=== PATIENT | male | born 1945 | race Caucasian/White ===

== ENCOUNTER 2016-10-29 13:50 | Emergency (ER) | payer MEDICARE, OTHER ==
[~2016-10-29] VITALS: Ht 188 cm; Wt 119.0 kg
[~2016-10-29 13:50] MED LIST: AC325T PO; ALBU8.5H2 IH; AMD200T PO; AMIO200T2 PO; ATOR10TA PO; ATOR20TA PO; BENZ200C43 PO; DABI150C PO; DIGO250T PO; DILT240C45 PO; DILT360C29 PO; DLT180CCR PO; DOXY100C2 PO; FAMO20TA13 PO; FURO20TA4 PO; GLIM4TAB PO; HCT25T PO; HUM100VI13 SQ; INSASP1U SQ; INSU100V32 SQ; INSU100V5 SC; LEVEMIR (P10 UNIT/0. SC; LEVEMIR (P10 UNIT/0. SQ; LOSA50TA2 PO; LSNP20T PO; METF1000 PO; METF500T4 PO; METO-274 PO; OMEG1CAP58 PO; OMEP20CA12 PO; PANT40TA3 PO; PIOG15TA3 PO; PRD20T PO; SIMV40TA2 PO; SPRN25T PO; [UNRECOGNIZED DRUG - OTHER]; novolin
[2016-10-29 14:44] LABS: MEAN CORPUSCULAR HEMOGLOBIN 30.2 PG (26.0-34.0); MEAN CORPUSCULAR HGB CONC 33.9 g/dL (31.0-37.0); MEAN CORPUSCULAR VOLUME 89 FL (80-100); MEAN PLATELET VOLUME 9.7 FL (6.0-9.5); PLATELET COUNT 247 10^3uL (150-450); WHITE BLOOD COUNT 17.86 10^3uL (4.0-11.0)
--- NOTE | 2016-10-29 14:47 | NUR ---
EKG given to MD. Lindsey completed @8674.
--- NOTE | 2016-10-29 14:47 | NUR ---
Per MD, O2 sat OK at >88% RA, per patient usu at 88%, d/n have home O2.
[2016-10-29 14:56] LABS: ALBUMIN 4.1 g/dL (3.4-5.0); ANION GAP 16.5 MEQ/L (3-15); CALCULATED IONIZED CALCIUM 3.7 mg/dL (3.8-4.6); TOTAL PROTEIN 7.6 g/dL (6.4-8.5)
--- NOTE | 2016-10-29 14:56 | NUR ---
Informed of urine specimen order, instructed to notify staff when need to void, call domingo w/in reach, verbalized understanding, NAD.
--- NOTE | 2016-10-29 14:57 | Diagnostic Imaging Report ---
INDICATION: Cough shortness of air. COMPARISON: 09/08/2016. FINDINGS: Examination is mildly limited by portable technique and patient body habitus. Stable right basilar linear opacities, which are chronic. Posterior lower lobes are poorly evaluated by portable radiography. Stable enlargement of cardiac silhouette. Pulmonary vasculature is grossly normal. IMPRESSION: Stable chest radiograph compared to 09/08/2016. No evidence of acute cardiopulmonary process by portable radiography. Dictated by: Dictated on workstation # [id number]
[2016-10-29] MEDS ORDERED: NS IV 500 ML 500 ML IV SCH (15:10)
[2016-10-29 15:12] LABS: BAND NEUTROPHILS % 3 % (0-6); EOSINOPHILS % 0 % (0-4); RBC MORPH NORMAL (NORMAL); SEGMENTED NEUTROPHILS % 84 % (51-67)
[2016-10-29 15:13] LABS: LYMPHOCYTES # 1.4 #; MONOCYTES # 0.9 #; MONOCYTES % 5 % (3-11); TOTAL CELLS COUNTED 100
--- NOTE | 2016-10-29 15:45 | NUR ---
Assisted patient to standing position to void in bedside urinal, NAD.
[2016-10-29 15:50] LABS: BILIRUBIN,URINE Negative (Negative); CLARITY,URINE Clear; COLOR,URINE Yellow; GLUCOSE, URINE (UA) Negative (Negative); LEUKOCYTE ESTERASE ,URINE Negative (Negative); PH,URINE 5.5 (5.0 - 8.0); UROBILINOGEN,URINE 0.2 mg/dL (0.2-1.0)
[2016-10-29 16:02] LABS: RBC,URINE 0-2 /HPF; URINE CENTRIFUGED VOLUME 12 mL
[2016-10-29] MEDS ORDERED: BENZ-22 PO (16:10)
[2016-10-29] MEDS ORDERED: BENZONATATE 100 MG (TESSALON) CAPSULE PO ONE (16:10)
[2016-10-29 16:27] VITALS: BP 134/61
== END 2016-10-29 16:30 | disposition home or self-care (01) ==
LOC: EDUNIT# 13:50 → ED 13:52
DX: R53.1 Weakness (principal); R19.7 Diarrhea, unspecified; I10 Essential (primary) hypertension; E78.5 Hyperlipidemia, unspecified; E11.9 Type 2 diabetes mellitus without complications; I48.91 Unspecified atrial fibrillation
CPT/HCPCS: 36415; 71010; 80053; 80162; 81003; 81015; 82550; 82553; 84484; 85025; 85610; 85730; 93005; 96360; 99285; A9270; J7040; 93010; 99284

== ENCOUNTER → 2016-11-03 | Outpatient (REF) | payer MEDICARE, OTHER | LOC: LAB 09:47 | PROVIDERS: ATTEND Family Medicine | DX: E11.9 Type 2 diabetes mellitus without complications (principal) | CPT/HCPCS: 83036 ==

== ENCOUNTER → 2016-12-12 | Outpatient (CLI) | payer MEDICARE, OTHER ==
[2016-12-12 11:28] LABS: ANION GAP 16.3 MEQ/L (3-15)
== END ==
LOC: LAB 11:08
PROVIDERS: ATTEND Family Medicine
DX: I50.42 Chronic combined systolic (congestive) and diastolic (congestive) heart failure (principal)
CPT/HCPCS: 36415; 80048

== ENCOUNTER → 2016-12-18 | Outpatient (REF) | payer MEDICARE, OTHER ==
[2016-12-18 16:40] LABS: ANION GAP 18.3 MEQ/L (3-15)
== END ==
LOC: LAB 14:55
PROVIDERS: ATTEND Family Medicine
DX: N18.3 Chronic kidney disease, stage 3 (moderate) (principal)
CPT/HCPCS: 80048

== ENCOUNTER → 2016-12-26 | Outpatient (CLI) | payer MEDICARE, OTHER | LOC: RAD 11:46 | PROVIDERS: ATTEND Family Medicine | DX: M25.562 Pain in left knee (principal) | CPT/HCPCS: 73562 ==

== ENCOUNTER 2017-01-07 13:01 | Emergency (ER) | payer MEDICARE, OTHER ==
[~2017-01-07] VITALS: Ht 177.8 cm; Wt 121.0 kg
[~2017-01-07 13:01] MED LIST changes: +BENZ-22 PO
[2017-01-07 14:46] LABS: BASOPHILS % (AUTO) 0 % (0-2); EOSINOPHILS # (AUTO) 0.2 10^3uL; EOSINOPHILS % (AUTO) 2 % (0-4); LYMPHOCYTES # (AUTO) 1.6 X10^3; MEAN CORPUSCULAR HEMOGLOBIN 29.7 PG (26.0-34.0); MEAN CORPUSCULAR HGB CONC 33.6 g/dL (31.0-37.0); MEAN CORPUSCULAR VOLUME 89 FL (80-100); MEAN PLATELET VOLUME 10.5 FL (6.0-9.5); MONOCYTES # (AUTO) 1.4 X10^3; MONOCYTES % (AUTO) 9 % (3-11); NEUTROPHILS # (AUTO) 11.7 X10^3; NEUTROPHILS % (AUTO) 78 % (51-67); PLATELET COUNT 287 10^3uL (150-450); WHITE BLOOD COUNT 14.95 10^3uL (4.0-11.0)
[2017-01-07 15:02] LABS: ALBUMIN 4.2 g/dL (3.4-5.0); ANION GAP 15.8 MEQ/L (3-15); CALCULATED IONIZED CALCIUM 3.7 mg/dL (3.8-4.6); TOTAL PROTEIN 8.2 g/dL (6.4-8.5)
--- NOTE | 2017-01-07 15:16 | Diagnostic Imaging Report ---
INDICATION: Dyspnea and chest pain. 1455 hrs. COMPARISON: Comparison is made to study of 10/29/2016. FINDINGS: There is bilateral air trapping. Prominent interstitial markings are seen throughout the lungs. There is no consolidation. No pneumothorax is identified. IMPRESSION: Probable COPD. Interstitial prominence has increased particularly in the left midlung and may represent edema or pneumonitis superimposed on background interstitial scarring. Dictated by: Dictated on workstation # [id number]
[2017-01-07 16:28] VITALS: BP 114/69
[2017-01-07] MEDS ORDERED: CEPH-331 PO (16:30)
== END 2017-01-07 16:58 | disposition home or self-care (01) ==
LOC: ED 13:03
DX: J06.9 Acute upper respiratory infection, unspecified (principal); E11.65 Type 2 diabetes mellitus with hyperglycemia; Z79.4 Long term (current) use of insulin; R42 Dizziness and giddiness
CPT/HCPCS: 36415; 71010; 80053; 84484; 85025; 93005; 99284; J7030; 99283

== ENCOUNTER 2017-01-09 09:45 | Outpatient (RCR) | payer MEDICARE, OTHER ==
--- NOTE | 2017-01-06 11:40 | PT/OT/ST INITIAL EVALUATION ---
Department of Health and Human Services Form Approved [facility] Care Financing Administration OMB No. [id number] PLAN OF CARE/ASSESSMENT FOR OUTPATIENT REHABILITATION (Complete for Initial Claims Only) 1. PATIENT'S NAME Deejay Ureña 2. ACC # [id number] 3. [facility] [id number] 4. PROVIDER NO. [id number] 5. TYPE: PT 6. PRIOR HOSPITALIZATION NA 7. PRIMARY DX Arthritis ICD-10 code M19.90 8. SECONDARY DX Left knee pain M25.562 9. ONSET DATE 2 to 3 weeks ago 10. REFERRAL DATE 12/25/2016 11. SOC. DATE 01/01/2017 12. TIME OF EVAL 13:[address] Wm Sexton 13. CHARGES/UNITS Evaluation 15256 1 unit of vasopneumatic device 70717 1 unit of therapeutic exercise 29836 14. G CODES Current C9162-HU Goal [id number] 15. PRIOR LEVEL OF FUNCTION; PERTINENT HISTORY (Prior therapy results, reason for referral.) S: Prior to therapy, the patient did consent to today's evaluation and treatment. The patient is a 71-year-old male referred by Dr. Wm Sexton, with a 2 to 3 week nontraumatic onset of left knee pain. The patient reports his pain is greatest medially along the knee joint of the left knee. He does experience buckling of the left knee at times, also. The patient has seen a chiropractor for this issue and has received a cortisone shot, which has not provided him relief at this time. The patient has been referred to an orthopedist; however, the appointment has not been scheduled at this time. Prior level of function: The patient reports loving to garden, as he has a large garden at his home. He ambulates without the use of an assistive device and is independent in his ADLs. The patient does have 3 to 4 entry steps with another 2 steps to transition from one level of his house to another. Current level of function: The patient reports being unable to sleep secondary to the left medial knee pain. He also has impaired gait sequencing and increased unsteadiness at times secondary to the left knee buckling. Pain level: Maximum pain is 7 to 8/10. Current pain level is 6/10 and described as a painful sensation all the time at the medial knee joint. Aggravating factors: The pain is aggravated by left knee movement. Relieving factors: There are no specific relieving factors that the patient has found at this time. Diagnostic testing: The patient has undergone x-rays, which he reports the physician found no specific issues. 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 Current medications: The patient did not provide a list of medications and was unable to remember the name of the pain medication he takes at this time. Patient's Goal: The patient's goal is to have a fix for his left knee pain. 16. INITIAL ASSESSMENT/SAFETY PRECAUTIONS/MEDICAL COMPLICATIONS (Level of function at start of care. Be specific, use objective measures, list problems.) O: APPEARANCE AND OBSERVATION: Assessment of the patient's gait reveals decreased weight bearing on the left lower extremity, foot-flat positioning, as well as increased lateral trunk sway. The patient does ambulate with a widened base of support and does wear poor footwear with minimal support. He is ambulating today without the use of an assistive device. The physical therapist notes vastus medialis atrophy on the left knee. The patient does have swelling around the left knee joint in comparison to the right. PALPATION: The patient has pain with slight tenderness to palpation of the medial left knee joint. SPECIAL TESTS: The patient scores a 70% disability on the Lower Extremity Functional Index. No further special testing was completed this date. RANGE OF MOTION/FLEXIBILITY: Right knee flexion 130 degrees, left 110 degrees and painful. Bilateral knee extension is both 0 degrees. STRENGTH: Bilateral hip flexion 5/5. Right knee flexion 4/5, left 3/5 and painful. Right knee extension 5/5, left 4/5 and painful. Ankle dorsiflexion 5/5 bilaterally. TODAY'S TREATMENT: Today's treatment consisted of educating the patient on the findings of the evaluation and recommended treatment plan. The physical therapist initiated left knee active range of motion and quadriceps strengthening exercises with the patient noting some left knee pain throughout these activities. The vasopneumatic device was utilized to decreased pain and swelling. However, the patient had poor tolerance of the vasopneumatic device and it was ended early. 17. INITIAL POC: (Specify procedures, modalities, short and snf goals) A: The patient presents to physical therapy with an acute onset of left knee pain that has impaired range of motion, as well as strength. The patient also has significant impairment with gait at this time. PROGNOSIS: The patient does have a fair outcome in physical therapy with regular therapy attendance and compliance with his home exercise program. OUTCOME ASSESSMENT: The patient scored a 70% disability on the Lower Extremity Functional Index. INFORMED CONSENT: The diagnosis, prognosis, treatment plan, risks and expected outcomes were discussed with the patient and he is agreeable to today's established plan of care. SHORT TERM GOALS X2 WEEKS: 1. The patient will report compliance with his home exercise program. 2. The patient will demonstrate the ability to ambulate with heel-toe gait pattern with pain no greater than a 4/10 with this technique. 3. The patient will improve left knee active range of motion to be a minimum of 120 degrees with minimal pain reported. LONG-TERM GOALS X4 WEEKS: 1. The patient will improve left knee flexion strength to be a minimum of 4/5, extension strength to be a minimum of 4+/5. 2. The patient will demonstrate the ability to perform single leg standing up to 15 seconds to demonstrate improve stability through the left lower extremity. 3. The patient will have a minimum of a 15% decrease on the Lower Extremity Functional Index. 4. The patient will report maximum pain level as a 5/10 in the left knee. P: Plan to treat this patient 3 times a week times 4 weeks in order to address left week pain, impaired lower extremity strength and range of motion. Treatment will include modalities as needed including a vasopneumatic device. Manual therapy will be utilized to decrease pain and improve muscle flexibility, therapeutic exercise emphasis on regaining full pain free range of motion with progressive strengthening as the patient tolerates, gait and balance training will be utilized as well. The patient was provided a home exercise program and this will be progressed as needed. Thank you for the referral of this patient. 18. FREQUENCY 3 times a week 19. DURATION 4 weeks 20. FUNCTIONAL LEVEL (End of claim period) 21. PHYSICIAN SIGNATURE ? ON FILE OR ENTER HERE: 22. DATE: I certify the need for these services furnished under this plan of care and if for partial hospitalization. 23. CERTIFICATION FROM THROUGH FORM [id number]
[~2017-01-09 09:45] MED LIST changes: +CEPH-331 PO
== END 2017-01-15 12:00 | disposition home or self-care (01) ==
LOC: PT 09:45
PROVIDERS: ATTEND Family Medicine
DX: M17.12 Unilateral primary osteoarthritis, left knee (principal); M25.562 Pain in left knee
CPT/HCPCS: 97016; 97110; 97161; 97530; G8978; G8979

== ENCOUNTER → 2017-02-27 | Outpatient (REF) | payer MEDICARE, OTHER ==
[2017-02-27 15:13] LABS: BASOPHILS % (AUTO) 0 % (0-2); EOSINOPHILS # (AUTO) 0.2 10^3uL; EOSINOPHILS % (AUTO) 1 % (0-4); MEAN CORPUSCULAR HEMOGLOBIN 29.6 PG (26.0-34.0); MEAN CORPUSCULAR HGB CONC 33.6 g/dL (31.0-37.0); MEAN CORPUSCULAR VOLUME 88 FL (80-100); MEAN PLATELET VOLUME 10.4 FL (6.0-9.5); MONOCYTES # (AUTO) 1.5 X10^3; MONOCYTES % (AUTO) 9 % (3-11); NEUTROPHILS # (AUTO) 13.1 X10^3; NEUTROPHILS % (AUTO) 77 % (51-67); PLATELET COUNT 284 10^3uL (150-450); WHITE BLOOD COUNT 16.87 10^3uL (4.0-11.0)
[2017-02-27 15:34] LABS: ALBUMIN 4.3 g/dL (3.4-5.0); ANION GAP 18.2 MEQ/L (3-15); CALCULATED IONIZED CALCIUM 3.7 mg/dL (3.8-4.6)
== END ==
LOC: LAB 15:01
PROVIDERS: ATTEND Family Medicine
DX: I10 Essential (primary) hypertension (principal); N18.3 Chronic kidney disease, stage 3 (moderate); E11.9 Type 2 diabetes mellitus without complications; I50.31 Acute diastolic (congestive) heart failure; Z86.73 Personal history of transient ischemic attack (TIA), and cerebral infarction without residual deficits
CPT/HCPCS: 80053; 80061; 83036; 85025

== ENCOUNTER 2017-03-06 06:26 | Day surgery (SDC) | payer MEDICARE, OTHER ==
[2017-03-06] VITALS (10 sets, daily range): BP systolic 107–139; BP diastolic 56–85
[~2017-03-06] VITALS: Ht 177.8 cm; Wt 120.0 kg
[~2017-03-06 06:26] MED LIST changes: +LACTATED RINGERS 1,000 ML IV SCH; +SODIUM CHLORIDE FLUSH 3 ML SYR IV PRN; +ceFAZolin 1,000 MG in SODIUM CHLORIDE VIAL (PF) 10 ML IV SCH
[2017-03-06] MEDS ORDERED: EPINEPHrine 0.1 MG/ML (1:10,000) 10 ML SYRINGE ONE (06:52)
[2017-03-06] MEDS ORDERED: BUPIVACAINE/EPINEPHRINE 0.25%-1:200,000 (MARCAINE) 30 ML VIAL INJ ONE (06:52)
[2017-03-06] MEDS ORDERED: SUCCINYLCHOLINE 20 MG/ML 10 ML VIAL ONE (07:02)
[2017-03-06] MEDS ORDERED: ALFENTANIL 1,000 MCG/2 ML AMP IV ONE (07:02)
[2017-03-06] MEDS ORDERED: PROPOFOL 20 ML IV ONE (07:02)
[2017-03-06] MEDS ORDERED: ePHEDrine SULFATE 50 MG/ML 1 ML AMP ONE (07:34)
[2017-03-06] MEDS ORDERED: PHENYLEPHRINE 10 MG/ML (NEO-SYNEPHRINE 1%) 1 ML VIAL ONE (07:37)
[2017-03-06] MEDS ORDERED: ASPIRIN 325 MG TAB PO SCH (09:45)
[2017-03-06] MEDS ORDERED: HYDROcodone/APAP 5 MG/325 MG (NORCO) TAB PO PRN (09:45)
--- NOTE | 2017-03-06 10:35 | OPERATIVE REPORT ---
DATE OF OPERATION: 03/06/2017 PRE-OPERATIVE DIAGNOSIS: Left knee possible medial meniscus tear. POST-OPERATIVE DIAGNOSIS: 1. Left knee possible medial meniscus tear. 2. Left knee tricompartmental grade II osteoarthritis. OPERATIVE PROCEDURE: Left knee arthroscopy partial medial meniscectomy. SURGEON: Derrick Carreno MD ANESTHESIA: General. ESTIMATED BLOOD LOSS: Minimal. INDICATIONS: Adult male has left knee pain MRI and examination are consistent with possible medial meniscus tear. He has failed conservative treatment. It is functionally disabling to him. He will undergo left knee arthroscopy. DESCRIPTION OF PROCEDURE: Following general anesthesia, left lower extremity is prepped and draped in the usual manner. Tourniquet was elevated to 250 mmHg but converted to 300 mmHg. Anteromedial, anterolateral, and superomedial portals were place using scalpel and trocar __ and enuretically. Inspection of the patella, femoral drawing shows some grade II chondromalacia, no debridement is necessary. Medial and lateral gutter was normal. Endochondral notch of the ACL and PCL to be normal. Lateral compartment showed a normal lateral meniscus. Medial compartment showed some grade II changes of the medial femur condyle. Minimal debridement was performed. There was a complex tear to the medial meniscus involving mostly the posterior horn using a combination of biter and shaver. A partial medial meniscectomy was performed. Saline was drained from the knee. Marcaine with epinephrine directly to the portals as well an enuretically. He tolerated this well. Returned to recovery in stable condition.
== END 2017-03-06 11:15 | disposition home or self-care (01) ==
LOC: ASC 06:26
PROVIDERS: ATTEND Orthopaedic Surgery
DX: S83.232A Complex tear of medial meniscus, current injury, left knee, initial encounter (principal); M17.12 Unilateral primary osteoarthritis, left knee; M25.462 Effusion, left knee; E66.3 Overweight; Z68.36 Body mass index [BMI] 36.0-36.9, adult; I10 Essential (primary) hypertension; E11.9 Type 2 diabetes mellitus without complications; G47.31 Primary central sleep apnea; I25.10 Atherosclerotic heart disease of native coronary artery without angina pectoris
CPT/HCPCS: 29881; A9270; J0171; J0330; J2370